=== PATIENT | female | born 1995 ===

== ENCOUNTER 2021-03-18 22:16 | Inpatient (IN) | payer MEDICAID ==
[2021-03-18] MEDS ORDERED: LIDOCAINE (2%) 20 MG/1 ML VIAL 20 ML MDV INFILTRATI ONE (23:23)
[2021-03-18] MEDS ORDERED: MINERAL OIL 30 ML ORAL LIQD PO PRN (23:23)
[2021-03-18] MEDS ORDERED: BUTORPHANOL 2 MG/1 ML INJ IV PRN (23:23)
[2021-03-18] MEDS ORDERED: OXYTOCIN 10 UNIT/1 ML INJ IM PRN (23:23)
[2021-03-18] MEDS ORDERED: ePHEDrine SULFATE 50 MG/1 ML INJ IV PRN (23:23)
[2021-03-18] MEDS ORDERED: LOPERAMIDE 2 MG CAP PO PRN (23:23)
[2021-03-18] MEDS ORDERED: miSOPROStol 200 MCG TAB PR PRN (23:23)
[2021-03-18] MEDS ORDERED: TERBUTALINE 1 MG/1 ML INJ SUB-Q PRN (23:23)
[2021-03-18] MEDS ORDERED: fentaNYL 100 MCG/2 ML INJ IV PRN (23:23)
[2021-03-18] MEDS ORDERED: ACETAMINOPHEN 325 MG TAB PO PRN (23:23)
[2021-03-18] MEDS ORDERED: CARBOPROST TROMETHAMINE 250 MCG/1 ML INJ IM PRN (23:23)
[2021-03-18] MEDS ORDERED: METHYLERGONOVINE MALEATE 0.2 MG/ML VIAL IM PRN (23:23)
[2021-03-18] MEDS ORDERED: LACTATED RINGERS 1,000 ML IV SCH (23:30)
[2021-03-18] MEDS ORDERED: OXYTOCIN DRIP 30 UNITS/500 ML BAG IV SCH (23:45)
[2021-03-19 00:22] LABS: Hematocrit 33.8 % (30.3-42.9); Hemoglobin 11.5 gm/dl (10.1-14.3); Mean Corpuscular HGB Conc 34 % (30-34); Mean Corpuscular Volume 90 fl (79-97); Platelet Count 233 K/mm3 (140-440); Red Blood Count 3.76 M/mm3 (3.65-5.03); Red Cell Distribution Width 15.3 % (13.2-15.2)
[2021-03-19] MEDS ORDERED: BUTORPHANOL 2 MG/1 ML INJ IV PRN (00:25)
[2021-03-19] MEDS ORDERED: LIDOCAINE (2%) 20 MG/1 ML VIAL 20 ML MDV INFILTRATI ONE (00:25)
[2021-03-19] MEDS ORDERED: METHYLERGONOVINE MALEATE 0.2 MG/ML VIAL IM PRN (00:25)
[2021-03-19] MEDS ORDERED: OXYTOCIN 10 UNIT/1 ML INJ IM PRN (00:25)
[2021-03-19] MEDS ORDERED: ePHEDrine SULFATE 50 MG/1 ML INJ IV PRN (00:25)
[2021-03-19] MEDS ORDERED: CARBOPROST TROMETHAMINE 250 MCG/1 ML INJ IM PRN (00:25)
[2021-03-19] MEDS ORDERED: MINERAL OIL 30 ML ORAL LIQD PO PRN (00:25)
[2021-03-19] MEDS ORDERED: ACETAMINOPHEN 325 MG TAB PO PRN ×2 (00:25→00:33)
[2021-03-19] MEDS ORDERED: LOPERAMIDE 2 MG CAP PO PRN (00:25)
[2021-03-19] MEDS ORDERED: miSOPROStol 200 MCG TAB PR PRN (00:25)
[2021-03-19] MEDS ORDERED: TERBUTALINE 1 MG/1 ML INJ SUB-Q PRN (00:25)
[2021-03-19] MEDS ORDERED: fentaNYL 100 MCG/2 ML INJ IV PRN (00:25)
[2021-03-19] MEDS ORDERED: LACTATED RINGERS 1,000 ML IV SCH (00:30)
[2021-03-19] MEDS ORDERED: LANOLIN/ZINC/DIMETHICONE (LANSINOH) 7 GM TP PRN (00:33)
[2021-03-19] MEDS ORDERED: WITCH HAZEL/ GLYCERIN PAD TP PRN (00:33)
[2021-03-19] MEDS ORDERED: diphenhydrAMINE 25 MG CAP PO PRN (00:33)
[2021-03-19] MEDS ORDERED: PROMETHAZINE 25 MG TAB PO PRN (00:33)
[2021-03-19] MEDS ORDERED: MAGNESIUM HYDROXIDE (MOM) ORAL LIQD UDC PO PRN (00:33)
[2021-03-19] MEDS ORDERED: ONDANSETRON 4 MG/2 ML INJ IV PRN (00:33)
[2021-03-19] MEDS ORDERED: oxyCODONE /ACETAMINOPHEN 5-325MG TAB PO PRN (00:33)
[2021-03-19] MEDS ORDERED: PROMETHAZINE 25 MG RECT SUPP PR PRN (00:33)
--- NOTE | 2021-03-19 00:40 | History and Physical Report ---
History of Present Illness Date of examination: 03/19/21 Date of admission: 03/18/21 23:23 Chief complaint: labor History of present illness: Patient is a 25-year-old 5 para 4-0-0-4 female who has been a patient at the [facility] [facility] EDC by dates 18 1 group B strep test is negative she has had greater than 12 visits at the clinic she is for babies in [place] in the past does have a history of recurrent UTIs and history of anemia she had cryosurgery in 2009 hematocrit 31.3% hemoglobin 10.2 HIV test nonreactive quad screen negative chlamydia and gonorrhea tests were negative RPR nonreactive hepatitis B was nonreactive rubella was immune HIV test was nonreactive patient is admitted in active labor. Past History Past Medical History: no pertinent history Past Surgical History: other (cryosurgery/) [employer]OUSING [employer] History: abnormal PAP smear Family/Genetic History: none Social history: - Obstetrical History Expected Date of Delivery: 03/16/21 Actual Gestation: 40 Week(s) 3 Day(s) : 5 Para: 4 Hx # Term Pregnancies: 4 Number of Pregnancies: 0 Spontaneous Abortions: 0 Induced : 0 Number of Living Children: 4 Medications and Allergies Allergies Allergy/AdvReac Type Severity Reaction Status Date / Time No Known Allergies Allergy Unverified 03/18/21 23:06 Home Medications Medication Instructions Recorded Confirmed Last Taken Type No Known Home Medications [No 03/19/21 03/19/21 Unknown History Reported Home Medications] Active Meds: Active Medications Acetaminophen (Acetaminophen 325 Mg Tab) 650 mg PO Q4H PRN PRN Reason: Pain, Mild (1-3) Acetaminophen (Acetaminophen 325 Mg Tab) 650 mg PO Q4H PRN PRN Reason: Pain, Mild (1-3) Butorphanol Tartrate (Butorphanol 2 Mg/1 Ml Inj) 1 mg IV Q2H PRN PRN Reason: Pain, Moderate(4-6) LABOR PAIN Butorphanol Tartrate (Butorphanol 2 Mg/1 Ml Inj) 1 mg IV Q2H PRN PRN Reason: Pain, Moderate(4-6) LABOR PAIN Carboprost Tromethamine (Carboprost Tromethamine 250 Mcg/1 Ml Inj) 250 mcg IM ONCE PRN PRN Reason: Uterine Bleeding Carboprost Tromethamine (Carboprost Tromethamine 250 Mcg/1 Ml Inj) 250 mcg IM ONCE PRN PRN Reason: Uterine Bleeding Ephedrine Sulfate (Ephedrine Sulfate 50 Mg/1 Ml Inj) 10 mg IV Q2M PRN PRN Reason: Hypotension Ephedrine Sulfate (Ephedrine Sulfate 50 Mg/1 Ml Inj) 10 mg IV Q2M PRN PRN Reason: Hypotension Fentanyl (Fentanyl 100 Mcg/2 Ml Inj) 100 mcg IV Q2H PRN PRN Reason: Pain,Severe (7-10) LABOR PAIN Fentanyl (Fentanyl 100 Mcg/2 Ml Inj) 100 mcg IV Q2H PRN PRN Reason: Pain,Severe (7-10) LABOR PAIN Lactated Ringer's (Lactated Ringers) 1,000 mls @ 125 mls/hr IV DIRECT RYAN Last Admin: 03/19/21 00:07 Dose: 125 mls/hr Documented by: Oxytocin/Sodium Chloride (Pitocin/Ns 30 Unit/500ml) 30 units in 500 mls @ 40 mls/hr IV TITR RYAN; Protocol Oxytocin/Sodium Chloride (Pitocin/Ns 30 Unit/500ml) 30 units in 500 mls @ 2 mls/hr IV TITR RYAN; Protocol Lactated Ringer's (Lactated Ringers) 1,000 mls @ 125 mls/hr IV DIRECT RYAN Oxytocin/Sodium Chloride (Pitocin/Ns 30 Unit/500ml) 30 units in 500 mls @ 40 mls/hr IV TITR RYAN; Protocol Lidocaine (Lidocaine (2%) 20 Mg/1 Ml Vial 20 Ml Mdv) 20 ml INFILTRATI ONCE ONE Stop: 03/19/21 00:26 Loperamide HCl (Loperamide 2 Mg Cap) 2 mg PO ONCE PRN PRN Reason: give with Hemabate Loperamide HCl (Loperamide 2 Mg Cap) 2 mg PO ONCE PRN PRN Reason: give with Hemabate Methylergonovine Maleate (Methylergonovine Maleate 0.2 Mg/Ml Vial) 0.2 mg IM ONCE PRN PRN Reason: Uterine Bleeding Methylergonovine Maleate (Methylergonovine Maleate 0.2 Mg/Ml Vial) 0.2 mg IM ONCE PRN PRN Reason: Uterine Bleeding Mineral Oil (Mineral Oil 30 Ml Oral Liqd) 30 ml PO QHS PRN PRN Reason: Constipation Mineral Oil (Mineral Oil 30 Ml Oral Liqd) 30 ml PO QHS PRN PRN Reason: Constipation Misoprostol (Misoprostol 200 Mcg Tab) 800 mcg DE ONCE PRN PRN Reason: Uterine Bleeding Misoprostol (Misoprostol 200 Mcg Tab) 800 mcg DE ONCE PRN PRN Reason: Uterine Bleeding Oxytocin (Oxytocin 10 Unit/1 Ml Inj) 10 unit IM ONCE PRN PRN Reason: Uterine Bleeding Oxytocin (Oxytocin 10 Unit/1 Ml Inj) 10 unit IM ONCE PRN PRN Reason: Uterine Bleeding Terbutaline Sulfate (Terbutaline 1 Mg/1 Ml Inj) 0.25 mg SUB-Q ONCE PRN PRN Reason: Hyperstimulation/Hypertonicity Terbutaline Sulfate (Terbutaline 1 Mg/1 Ml Inj) 0.25 mg SUB-Q ONCE PRN PRN Reason: Hyperstimulation/Hypertonicity Review of Systems All systems: negative - Vital Signs Vital signs: Vital Signs Pulse BP 69 117/75 03/18/21 22:36 03/18/21 22:36 Temp Pulse Resp BP Pulse Ox 98.5 F 71 18 119/65 98 03/18/21 22:40 03/19/21 00:32 03/18/21 22:40 03/19/21 00:21 03/19/21 00:32 - Physical Exam Breasts: Cardiovascular: Regular rate, Normal S1, Normal S2 Lungs: Positive: Clear to auscultation, Normal air movement Abdomen: Positive: normal appearance, soft, normal bowel sounds. Negative: distention, tenderness Genitourinary (Female): Positive: normal external genitalia, normal perenium Vulva: both: normal Vagina: Positive: normal moisture. Negative: discharge Cervix: Positive: other (8 cms). Negative: lesion, discharge Uterus: Positive: normal size, normal contour Adnexa: both: normal Anus/Rectum: Positive: normal perianal skin, heme negative. Negative: rectal mass, hemorrhoids Extremities: Positive: normal Deep Tendon Reflex Grade: Normal +2 - Obstetrical FHR: category 1 Uterine Contraction Monitor Mode: External Cervical Dilatation: 8 Cervical Effacement Percentage: 100 station: +1 Results Result Diagrams: 03/18/21 00:00 Abnormal lab results 03/18/21 Range/Units 00:00 RDW 15.3 H (13.2-15.2) % All other labs normal. Assessment and Plan expectant vag delivery.
--- NOTE | 2021-03-19 00:46 | Procedure Note ---
Date of procedure: 03/19/21 Pre-op diagnosis: 40 wks iup, active labor Post-op diagnosis: same Procedure: No spontaneous vaginal delivery Placenta delivered spontaneously. The baby weighed 7 pounds 8 ounces with Apgars 8 and 9. Rectal mucosa was intact placenta was noted too. Patient tolerated procedure well. Anesthesia: none Surgeon: AZ POPE Estimated blood loss: minimal Pathology: none Specimen disposition: discarded Condition: stable Disposition: floor
[2021-03-19] MEDS ORDERED: OXYTOCIN DRIP 30 UNITS/500 ML BAG IV SCH ×2 (01:00)
[2021-03-19] MEDS: IBUPROFEN 600 MG TAB PO SCH ×4 (02:45→17:11)
[2021-03-19 06:11] LABS: Hematocrit 31.6 % (30.3-42.9); Hemoglobin 10.7 gm/dl (10.1-14.3); Mean Corpuscular HGB Conc 34 % (30-34); Mean Corpuscular Volume 91 fl (79-97); Platelet Count 217 K/mm3 (140-440); Red Blood Count 3.48 M/mm3 (3.65-5.03); Red Cell Distribution Width 15.3 % (13.2-15.2)
[2021-03-19] MEDS: FERROUS SULFATE 325 MG TAB PO SCH (13:55)
[2021-03-20] MEDS: IBUPROFEN 600 MG TAB PO SCH ×3 (01:06→12:46)
[2021-03-20] MEDS: FERROUS SULFATE 325 MG TAB PO SCH (09:05)
--- NOTE | 2021-03-20 10:24 | Progress Note ---
Assessment and Plan A: S/P P: D/C home per pt request and MD approval Subjective - Subjective Date of service: 03/20/21 Principal diagnosis: s/p Patient reports: appetite normal, voiding normally, pain well controlled, ambulating normally [place]: doing well, bottle feeding Objective - Vital Signs Latest vital signs: Vital Signs Temp Pulse Resp BP BP Pulse Ox Pulse Ox 03/20/21 09:49 63 90/53 03/20/21 07:59 97.5 F L 52 L 16 91/48 98 03/20/21 07:20 98 03/20/21 07:04 18 03/20/21 06:13 18 03/20/21 01:06 18 03/20/21 00:13 98.4 F 61 16 91/56 98 03/19/21 20:00 100 03/19/21 16:49 98.2 F 55 L 18 94/54 98 03/19/21 12:23 98.3 F 58 L 18 92/57 100 Intake and Output 03/19/21 03/20/21 03/20/21 22:59 06:59 14:59 Intake Total 840 420 120 Balance 840 420 120 Intake: Oral 360 120 Intake, Free Water 480 420 Other: Total, Intake Amount 360 120 # Voids Void 2 2 1 - Exam Breasts: Present: normal Abdomen: Present: normal appearance, soft, normal bowel sounds Vulva: both: normal Uterus: Present: normal, firm, fundal height below umbilicus Extremities: Present: normal
--- NOTE | 2021-03-20 10:30 | Discharge Summary ---
Providers - Providers Date of Admission: 03/18/21 23:23 Date of discharge: 03/20/21 Attending physician: AZ POPE MD Primary care physician: AZ POPE MD Hospitalization Reason for admission: active labor Delivery: Episiotomy: none Laceration: none Other procedures: none complications: none Discharge diagnosis: IUP at term delivered baby: male Hospital course: Pt was admitted in active labor and had a w/o pp complications. Pt's b/p runs in the 90s systolic, but this has been her normal throughout her preg. See H&P, delivery summary, and pp notes. She was advised to increase her fluids to 6-8 8 oz glasses of h20 qd. Pt was d/c'd home after Dr Joseph was consulted and agreed with plan. Condition at discharge: Stable Disposition: DC-01 TO HOME OR SELFCARE Plan - Discharge Medications Prescriptions: Ibuprofen [Motrin 600 MG tab] 600 mg PO Q6HR #30 tablet - Provider Discharge Summary Activity: routine, no sex for 6 weeks, no heavy lifting 4 weeks, no strenuous exercise Diet: routine Instructions: routine Additional instructions: [] Smoking cessation referral if applicable(refer to patient education folder for contact #) [] Refer to [facility] Booklet Call your doctor immediately for: * Fever > 100.5 * Heavy vaginal bleeding ( >1 pad per hour) * Severe persistent headache * Shortness of breath * Reddened, hot, painful area to leg or breast * Drainage or odor from incision. * Keep incision clean and dry at all times and follow doctor's instructions rega rding bathing/showering - Follow up plan Follow up: AZ POPE MD [Primary Care Provider] - 6 Weeks Forms: [facility] Discharge Summary
[2021-03-20 13:17] VITALS: BP 96/62
== END 2021-03-20 14:25 | disposition home or self-care (01) | DRG 807 ==
LOC: TRG 22:16 → APU 22:30 → TRG 23:23 → LD 23:23 → OB 03-19 02:15
PROC: 10E0XZZ Delivery of Products of Conception, External Approach (ICD-10-PCS; principal; 2021-03-19)
DX: O80 Encounter for full-term uncomplicated delivery (principal); Z37.0 Single live birth; Z3A.40 40 weeks gestation of pregnancy; Z20.822 Contact with and (suspected) exposure to COVID-19
CPT/HCPCS: 36415; 59025; 85014; 85018; 85027; 86592; 86850; 86900; 86901; 96360; G0378; J7120; U0003